=== PATIENT | female | born 2000 | race Caucasian/White ===

== ENCOUNTER 2020-08-26 15:11 | Emergency (ER) | payer MEDICAID ==
[~2020-08-26] VITALS: Ht 165.1 cm; Wt 82.0 kg
[2020-08-26] MEDS ORDERED: ONDANSETRON HCL 4MG/2ML INJ IV STA (15:53)
[2020-08-26] MEDS ORDERED: KETOROLAC 30MG/ML VIAL IV STA (15:53)
[2020-08-26] MEDS ORDERED: SODIUM CHLORIDE 0.9% 1,000 ML IV ONE (16:00)
[2020-08-26 16:41] LABS: CLARITY URINE CLEAR (CLEAR); COLOR URINE YELLOW (YELLOW); KETONES URINE NEGATIVE (NEGATIVE); LEUKOCYTE ESTERASE URINE NEGATIVE (NEGATIVE); NITRITE URINE NEGATIVE (NEGATIVE); OCCULT BLOOD URINE NEGATIVE (NEGATIVE); PH URINE 7.5 (4.5-8.0); PROTEIN URINE NEGATIVE (NEGATIVE); SPECIFIC GRAVITY URINE 1.022 (1.005-1.030); UROBILINOGEN URINE 0.2 E.U./dL (0.2-1.0)
[2020-08-26 16:41] LABS: BASOPHILS % 0.1 % (0.0-2.0); EOSINOPHILS % 0.2 % (0.0-5.0); HEMATOCRIT. 43.1 % (36.0-48.0); HEMOGLOBIN. 14.4 g/dL (12.0-16.0); LYMPHOCYTES % 17.8 % (20.0-50.0); MEAN CORPUSCULAR HEMOGLOBIN 29.9 pg (28.0-32.0); MEAN CORPUSCULAR VOLUME 89.5 fL (81.0-99.0); MEAN PLATELET VOLUME 7.6 fl (7.4-10.4); MONOCYTES % 7.7 % (2.0-8.0); NEUTROPHILS % 74.2 % (40.0-76.0); PLATELET 356 x1000/uL (130-400); RED BLOOD CELL COUNT 4.82 mill/uL (4.2-5.4); RED CELL DISTRIBUTION WIDTH 13.4 % (11.6-14.6)
[2020-08-26 16:47] LABS: CHLORIDE 104 mEq/L (98-107)
[2020-08-26 16:52] LABS: HCG SCREEN NEGATIVE
[2020-08-26 18:48] VITALS: BP 119/89
[2020-08-26] MEDS ORDERED: IOHEXOL-300 100 ML BOTTLE ONE (19:28)
== END 2020-08-26 18:55 | disposition home or self-care (01) ==
LOC: ER 15:11
DX: N13.2 Hydronephrosis with renal and ureteral calculous obstruction (principal)
CPT/HCPCS: 36415; 74177; 80053; 81003; 83690; 84703; 85025; 93005; 96361; 96374; 96375; 99285; J1885; J2405; J7030; Q9967

== ENCOUNTER 2021-07-19 12:07 | Emergency (ER) | payer MEDICAID, OTHER ==
[~2021-07-19] VITALS: Ht 162.6 cm; Wt 76.0 kg
[2021-07-19 12:54] VITALS: BP 140/69
[2021-07-19] MEDS ORDERED: IBUPROFEN 600MG TABLET PO ONE (13:00)
== END 2021-07-19 13:18 | disposition home or self-care (01) ==
LOC: ER 12:07
DX: G44.209 Tension-type headache, unspecified, not intractable (principal)
CPT/HCPCS: 81025; 99282

== ENCOUNTER 2024-02-15 18:37 | Emergency (ER) | payer BC, MEDICAID, OTHER ==
[~2024-02-15] VITALS: Ht 162.6 cm; Wt 82.0 kg
[2024-02-15 18:41] VITALS: O2SAT 99
[2024-02-15] MEDS: METOCLOPRAMIDE HCL 10MG/2ML VIAL IV ONE (20:59)
[2024-02-15] MEDS: DIPHENHYDRAMINE 50MG/ML VIAL IV ONE (21:00)
[2024-02-15] MEDS: SODIUM CHLORIDE 0.9% 1,000 ML IV ONE (21:00)
[2024-02-15] MEDS: KETOROLAC 15MG/ML VIAL IV ONE (21:00)
[2024-02-15] MEDS ORDERED: IBUP-2028 MT (22:20)
[2024-02-15 22:44] VITALS: BP 128/78; PULSE 84; RESP 14; TEMP 98.4
== END 2024-02-15 22:45 | disposition home or self-care (01) ==
LOC: ER 18:37
DX: G43.909 Migraine, unspecified, not intractable, without status migrainosus (principal); J32.9 Chronic sinusitis, unspecified
CPT/HCPCS: 99284; 96374; 96375; 96361; J1200; J1885; J2765; J7030